=== PATIENT | female | born 1950 | race Two or more races ===

== ENCOUNTER 2024-04-08 16:41 | Inpatient (IN) | payer MEDICARE, MEDICAID ==
[~2024-04-08] VITALS: Ht 147.3 cm; Wt 39.7 kg
[2024-04-08] MEDS: DiphenhydrAMINE HCL 50 MG/ML VIAL IM ONE (20:05)
[2024-04-08] MEDS: LORazepam 2 MG/ML VIAL IM ONE (20:06)
[2024-04-08] MEDS: HALOPERIDOL LACTATE 5 MG/ML VIAL IM ONE (20:06)
[2024-04-08] MEDS ORDERED: HALOPERIDOL 5 MG TABLET PO PRN (20:30)
[2024-04-08] MEDS ORDERED: LORazepam 2 MG TABLET PO PRN (20:30)
[2024-04-08] MEDS ORDERED: ZOLPIDEM TARTRATE 10 MG TABLET PO PRN ×2 (20:30→22:30)
[2024-04-08 21:04] LABS: BASOPHILS % (AUTO) 0.9 % (0.0-2.0); EOSINOPHILS % (AUTO) 0.8 % (1.0-6.0); HEMATOCRIT 37.3 % (36-46); HEMOGLOBIN 12.7 g/dL (12.0-16.0); LYMPHOCYTES # (AUTO) 1.8 K/uL (1.0-4.8); LYMPHOCYTES % (AUTO) 25.9 % (22.0-44.0); MEAN CORPUSCULAR HEMOGLOBIN 29.1 pg (26.0-34.0); MEAN CORPUSCULAR HGB CONC 34.1 G/dL (31.0-37.0); MEAN CORPUSCULAR VOLUME 85 fL (80-100); MONOCYTES # (AUTO) 0.6 K/uL (0.1-1.0); MONOCYTES % (AUTO) 8.7 % (2.0-9.0); NEUTROPHILS # (AUTO) 4.3 K/uL (1.8-7.7); NEUTROPHILS % (AUTO) 63.7 % (40.0-70.0); PLATELET COUNT (AUTO) 210 K/uL (150-450); RED BLOOD CELL COUNT(AUTO) 4.36 MIL/uL (4.00-5.20); RED CELL DISTRIBUTION WIDTH 14.5 % (11.5-14.5); WHITE BLOOD COUNT (AUTO) 6.8 K/uL (4.5-11.0)
[2024-04-08 21:21] LABS: ANION GAP 6 mmol/L (8-16); CALCIUM, TOTAL 8.5 mg/dL (8.8-10.5); CARBON DIOXIDE 31 mmol/L (22-29); CHLORIDE 101 mmol/L (98-107); CREATININE 0.65 mg/dL (0.60-1.30); GLOMERULAR FILTR. RATE CALC > 60 mL/min (>60); GLUCOSE,RANDOM 87 mg/dL (70-110); POTASSIUM 3.3 mmol/L (3.5-5.1); SODIUM SERUM 138 mmol/L (136-145); UREA NITROGEN, BLOOD 14 mg/dL (7-18)
[2024-04-08 21:23] LABS: COVID AG,FIA SOURCE NASAL SWAB
[2024-04-08 21:46] LABS: SARS-COV2 (COVID) ANTIGEN,FIA Negative (Negative)
[2024-04-08 21:55] LABS: ALCOHOL, BLOOD (SERUM) < 3 mg/dL (0-10)
[2024-04-08] MEDS: POTASSIUM CHLORIDE 20 MEQ ER TABLET PO ONE (22:14)
[2024-04-09] MEDS ORDERED: HALOPERIDOL 5 MG TABLET PO PRN (00:30)
[2024-04-09] MEDS ORDERED: LORazepam 2 MG TABLET PO PRN (00:30)
[2024-04-09 03:24] LABS: APPEARANCE,URINE CLEAR (CLEAR); BILIRUBIN,URINE NEGATIVE (NEGATIVE); COLOR,URINE LIGHT YELLOW (YELLOW); GLUCOSE, URINE (UA) NEGATIVE (NEGATIVE); KETONES,URINE NEGATIVE (NEGATIVE); LEUKOCYTE ESTERASE ,URINE SMALL (NEGATIVE); NITRATE,URINE NEGATIVE (NEGATIVE); OCCULT BLOOD,URINE NEGATIVE (NEGATIVE); PROTEIN,URINE NEGATIVE (NEGATIVE); SPECIFIC GRAVITIY, URINE 1.012 (1.003-1.030); UROBILINOGEN,URINE <=1.0 mg/dL (<=1.0)
[2024-04-09 03:28] LABS: BACTERIA,URINE None Seen /HPF (None Seen); RBC,URINE None Seen /HPF (0-2); SQUAMOUS EPITHELIAL CELL,UR Few /LPF (None Seen)
[2024-04-09 03:30] LABS: ALCOHOL, URINE DRUG SCREEN NEGATIVE (NEGATIVE); AMPHET/METH SCREEN,URINE NEGATIVE (NEGATIVE); BARBITURATE SCREEN, URINE NEGATIVE (NEGATIVE); BENZODIAZEPINES SCREEN,URINE POSITIVE (NEGATIVE); CANNABINOID SCREEN,URINE NEGATIVE (NEGATIVE); COCAINE SCREEN,URINE NEGATIVE (NEGATIVE); METHADONE SCREEN, URINE NEGATIVE (NEGATIVE); OPIATE SCREEN,URINE NEGATIVE (NEGATIVE); PHENCYCLIDINE SCREEN,URINE NEGATIVE (NEGATIVE)
[2024-04-09 16:26] VITALS: BP 134/82; PULSE 88; RESP 18; TEMP 97.8; O2SAT 99
[2024-04-09] MEDS: SIMVASTATIN 20 MG TABLET PO SCH (21:20)
[2024-04-10] MEDS: CHOLECALCIFEROL (VIT D3) 1,000 UNITS [25 MCG] TABLET PO SCH (08:26)
[2024-04-10] MEDS: PEG 400/HYPROMELLOSE/GLYCERIN 15 ML OPHTHALMIC SOLUTION OU SCH (08:27)
[2024-04-10] MEDS: POLYETHYLENE GLYCOL 3350 17 GM PACKET PO SCH (08:27)
[2024-04-10 09:02] VITALS: BP 140/86; PULSE 110; RESP 20; TEMP 97.7; O2SAT 96
[2024-04-10] MEDS: MIRTAZAPINE 30 MG TABLET PO SCH (20:54)
[2024-04-10 21:33] VITALS: BP 90/60; PULSE 72; RESP 19; TEMP 98; O2SAT 98
[2024-04-11] MEDS: RisperiDONE 0.5 MG TABLET PO SCH (09:26)
[2024-04-11 09:55] VITALS: PULSE 104; RESP 19; TEMP 98.1; O2SAT 96
[2024-04-11] MEDS ORDERED: TETRABENAZINE 12.5 MG TABLET PO SCH (14:00)
[2024-04-11] MEDS: TETRABENAZINE 12.5 MG PO SCH (15:18)
[2024-04-11 21:40] VITALS: BP 94/54; PULSE 87; RESP 18; TEMP 97.1; O2SAT 96
[2024-04-12 09:56] VITALS: BP 108/67; PULSE 82; RESP 17; TEMP 97.5; O2SAT 99
[2024-04-12 21:50] VITALS: BP 100/64; PULSE 81; RESP 18; TEMP 98.1; O2SAT 98
[2024-04-13 09:42] VITALS: BP 133/65; PULSE 95; RESP 18; TEMP 97.3; O2SAT 98
[2024-04-13 21:40] VITALS: BP 93/64; PULSE 76; RESP 18; TEMP 97.4; O2SAT 98
[2024-04-14 09:00] VITALS: BP 121/76; PULSE 84; RESP 17; TEMP 97.6; O2SAT 96
[2024-04-14 21:07] VITALS: BP 91/46; PULSE 73; RESP 18; TEMP 97.7; O2SAT 98
[2024-04-15 08:30] VITALS: BP 118/70; PULSE 99; RESP 18; TEMP 97.3; O2SAT 98
[2024-04-15] MEDS: RisperiDONE 0.5 MG TABLET PO SCH (16:53)
[2024-04-15 20:28] VITALS: RESP 18
[2024-04-15 21:20] VITALS: RESP 18
[2024-04-16 10:28] VITALS: RESP 18; TEMP 96.6
[2024-04-16 22:02] VITALS: BP 95/66; PULSE 66; RESP 18; TEMP 97.6; O2SAT 100
[2024-04-17] MEDS: RisperiDONE 1 MG TABLET PO SCH (09:13)
[2024-04-17 12:14] VITALS: BP 137/61; PULSE 90; RESP 18; TEMP 97.9; O2SAT 99
[2024-04-17 21:59] VITALS: BP 104/61; PULSE 74; RESP 18; TEMP 97.3; O2SAT 95
[2024-04-18 10:31] VITALS: RESP 20
[2024-04-18 21:17] VITALS: BP 95/51; PULSE 70; RESP 16; TEMP 97.6; O2SAT 97
[2024-04-19 14:22] VITALS: BP 116/64; PULSE 74; RESP 18; TEMP 97.5; O2SAT 98
[2024-04-19 20:10] VITALS: RESP 18
[2024-04-20 09:27] VITALS: BP 109/56; PULSE 96; RESP 18; TEMP 98.7; O2SAT 99
[2024-04-20 20:42] VITALS: RESP 18
[2024-04-21 08:20] VITALS: BP 149/80; PULSE 93; RESP 20; TEMP 98
[2024-04-21] MEDS ORDERED: BISACODYL 5 MG EC TABLET PO PRN (11:15)
[2024-04-21] MEDS: BISACODYL 10 MG RECTAL RECTAL SUPPOSITORY PR PRN (12:13)
[2024-04-21 20:30] VITALS: RESP 16; TEMP 96.9; O2SAT 98
[2024-04-22 04:00] VITALS: RESP 18
[2024-04-22 09:00] VITALS: BP 148/65; PULSE 78; RESP 18; TEMP 97.3; O2SAT 100
[2024-04-22] MEDS ORDERED: DOCUSATE SODIUM 100 MG CAPSULE PO PRN (09:15)
[2024-04-22] MEDS ORDERED: CloNIDine HCL 0.1 MG TABLET PO PRN (09:15)
[2024-04-22] MEDS ORDERED: ONDANSETRON 4 MG TABLET PO PRN (09:15)
[2024-04-22] MEDS ORDERED: NICOTINE 14 MG/24 HOUR PATCH TD PRN (09:15)
[2024-04-22] MEDS ORDERED: LOPERAMIDE HCL 2 MG CAPSULE PO PRN (09:15)
[2024-04-22] MEDS ORDERED: MAG HYDROX/ALUMINUM HYD/SIMETH ES 30 ML SUSPENSION UDCUP PO PRN (09:15)
[2024-04-22] MEDS ORDERED: PETROLATUM,WHITE 28 GM JELLY TP PRN (09:15)
[2024-04-22] MEDS ORDERED: GuaiFENesin/D-METHORPHAN [SUGAR-FREE] 200-20MG/10 ML SYRUP UDCUP PO PRN (09:15)
[2024-04-22] MEDS ORDERED: IBUPROFEN 400 MG TABLET PO PRN (09:15)
[2024-04-22] MEDS ORDERED: ACETAMINOPHEN 325 MG TABLET PO PRN (09:15)
[2024-04-22] MEDS ORDERED: MAGNESIUM HYDROXIDE SUSPENSION 30 ML UDCUP PO PRN (09:15)
[2024-04-22] MEDS ORDERED: ALBUTEROL SULFATE HFA 90 MCG/PUFF 8 GM INHALER IH PRN (09:15)
[2024-04-22 20:24] VITALS: BP 121/77; PULSE 76; RESP 18; TEMP 98.1; O2SAT 100
[2024-04-23 10:20] VITALS: RESP 18
[2024-04-23 20:50] VITALS: RESP 17; TEMP 97.3
[2024-04-24 08:00] LABS: HEMOGLOBIN A1C 5.5 % (3.8-5.6)
[2024-04-24 08:14] LABS: CHOL/HDL RATIO 2.8 (3.9-5.7); THYROID STIMULATING HORMONE 3.1 uIU/mL (0.36-3.74)
[2024-04-24 10:42] VITALS: RESP 18; TEMP 97
[2024-04-24 22:28] VITALS: RESP 19
[2024-04-25 08:00] VITALS: BP 136/86; PULSE 88; RESP 18; TEMP 97.8; O2SAT 98
[2024-04-25 21:23] VITALS: RESP 18
[2024-04-26 10:05] VITALS: RESP 17; TEMP 97
[2024-04-26 22:28] VITALS: RESP 17
[2024-04-27 17:24] VITALS: BP 136/87; PULSE 87; RESP 17; TEMP 97.6; O2SAT 98
[2024-04-27 20:54] VITALS: RESP 17
[2024-04-28 09:24] VITALS: RESP 17
[2024-04-28] MEDS: TUBERCULIN, PURIFIED PROTEIN DERIVATIVE 5 TU/0.1 ML SYRINGE ID ONE (19:35)
[2024-04-28 21:32] VITALS: RESP 18
[2024-04-29 09:00] VITALS: BP 97/69; PULSE 106; RESP 18; TEMP 97.6; O2SAT 0
[2024-04-29 22:47] VITALS: RESP 17
[2024-04-30] MEDS ORDERED: RISP-31 PO (16:15)
[2024-04-30] MEDS ORDERED: MIRT-149 PO (16:16)
[2024-04-30] MEDS ORDERED: CHOL25TA4 PO (16:17)
[2024-04-30] MEDS ORDERED: SIMV-260 PO (16:18)
[2024-04-30] MEDS ORDERED: DEXT15DR21 OU (16:18)
[2024-04-30] MEDS ORDERED: POLY17PO47 PO (16:18)
[2024-04-30 17:57] VITALS: RESP 18
[2024-04-30 21:38] VITALS: RESP 18
[2024-05-01 15:28] VITALS: PULSE 73; RESP 18; TEMP 96.9; O2SAT 98
[2024-05-01 23:21] VITALS: RESP 18
[2024-05-02 09:00] VITALS: RESP 18
[2024-05-02 21:22] VITALS: RESP 18
[2024-05-03 10:48] VITALS: PULSE 77; RESP 17; TEMP 97.7; O2SAT 97
[2024-05-03 22:15] VITALS: RESP 17
[2024-05-04 09:00] VITALS: RESP 18
== END 2024-05-04 18:40 | DRG 885 ==
LOC: EMS 16:41 → 3EX 04-09 15:35
PROVIDERS: ADMIT Psychiatry & Neurology Child & Adolescent Psychiatry; ATTEND Psychiatry & Neurology Child & Adolescent Psychiatry
PROC: GZHZZZZ Group Psychotherapy (ICD-10-PCS; principal; 2024-04-05)
PROC: GZ56ZZZ Individual Psychotherapy, Supportive (ICD-10-PCS; 2024-04-10)
PROC: GZ52ZZZ Individual Psychotherapy, Cognitive (ICD-10-PCS; 2024-04-12)
DX: F25.0 Schizoaffective disorder, bipolar type (principal); F41.9 Anxiety disorder, unspecified; H04.123 Dry eye syndrome of bilateral lacrimal glands; Z20.822 Contact with and (suspected) exposure to COVID-19; E55.9 Vitamin D deficiency, unspecified; E78.5 Hyperlipidemia, unspecified; G47.00 Insomnia, unspecified; M81.0 Age-related osteoporosis without current pathological fracture; Z78.1 Physical restraint status
CPT/HCPCS: 80048; 80061; 80307; 81001; 83036; 84443; 85025; 87081; 99285; G0378; G0480; J1200; J1630; J2060